=== PATIENT | male | born 1970 | race Caucasian/White ===

== ENCOUNTER 2018-12-07 20:30 | Inpatient (IN) | payer OTHER ==
[~2018-12-07] VITALS: Ht 175.3 cm; Wt 125.6 kg
[2018-12-07 20:35] VITALS: Ht 175.3 cm; Wt 125.6 kg
--- NOTE | 2018-12-07 20:35 | NUR ---
PT BIB AMBULANCE FOR "VOMITING BRIGHT RED BLOOD" X 1 HOUR. PER MEDIC "HE SAID HE WOKE UP ABOUT AN HOUR AGO AND STARTED TO FEEL FUNNY. HE WENT TO THE NURSE THERE AND HE STARTED VOMITING BRIGHT RED BLOOD. WHEN WE GOT ON SCENE HE WAS STILL VOMITING BRIGHT RED BLOOD." PT DENIES ANY PAIN OR BLOOD IN STOOL. PT IS AWAKE, ALERT, AND ORIENTED, BREATHING EVEN AND UNLABORED. PT IN NAD. BREATHING EVEN AND UNLABORED. CM AND [address] MSE IN PLACE. WILL CONTINUE TO MONITOR.
--- NOTE | 2018-12-07 20:54 | NUR ---
EKG IN PROGRESS AT BEDSIDE.
--- NOTE | 2018-12-07 20:59 | NUR ---
LAB AT BEDSIDE.
[2018-12-07 21:14] LABS: BASOPHIL % 0.8 % (0-2)
--- NOTE | 2018-12-07 21:14 | NUR ---
PT VOMITING APPR0X [address] VALENTINE MADE AWARE. AWAITING ORDERS AT THIS TIME.
[2018-12-07 21:15] LABS: PLATELET COUNT 118 x10^3mcL (130-400); RED CELL DISTRIBUTION WIDTH 18.3 % (11.5-14.5)
[2018-12-07 21:26] LABS: ALBUMIN 2.2 g/dL (3.4-5.0); ALKALINE PHOSPHATASE 160 U/L (46-116); ALT/SGPT 36 U/L (16-63); AST/SGOT 39 U/L (15-37); BILIRUBIN TOTAL 1.7 mg/dL (0.20-1.00); CALCIUM 8.8 mg/dL (8.5-10.1); CHLORIDE SERUM 111 mmol/L (98-107); CREATININE SERUM 0.8 mg/dL (0.7-1.3); GFR1 > 60 mL/min; GLUCOSE SERUM 136 mg/dL (74-106); POTASSIUM SERUM 5.5 mmol/L (3.5-5.1); SODIUM SERUM 140 mmol/L (136-145)
--- NOTE | 2018-12-07 21:41 | NUR ---
ATTEMPTED TO START NG TUBE ON PT WITH NOMI IRBY AT BEDSIDE. UPON ADVANCING NGT PT BEGAN GAGGING AND STATED "I CANT DO THIS". PT THEN PULLED NGT OUT AND STATED "NO I CANT DO THAT AWAKE, I TRIED BUT I CANT DO IT". DR VALENTINE MADE AWARE. WILL CONTINUE TO MONITOR.
--- NOTE | 2018-12-07 21:44 | NUR ---
NOTE AT 2140 COMPLETED BY ME, NOT DON IRBY.
[2018-12-07] MEDS ORDERED: XIFAXAN550 M1 PO ×2 (21:59→22:10)
[2018-12-07] MEDS ORDERED: TOPIRAMATE100 M1 PO (22:00)
[2018-12-07] MEDS ORDERED: PROPRANOLOL HCL10 MG PO (22:01)
[2018-12-07] MEDS ORDERED: SPIRONOLACTONE100 MG PO (22:03)
[2018-12-07] MEDS ORDERED: LAC15L PO (22:04)
[2018-12-07] MEDS ORDERED: PROPRANOLOL HCL20 MG PO (22:06)
[2018-12-07] MEDS ORDERED: KEPPRA500 MG PO (22:07)
[2018-12-07] MEDS ORDERED: CLINDAMYCIN HC300 MG PO (22:09)
[2018-12-07] MEDS ORDERED: LASIX40 MG PO (22:09)
--- NOTE | 2018-12-07 22:10 | NUR ---
IV FLUIDS RUNNING AT ORDERED RATE. CM AND [address] PT DROWSY BUT EASILY AROUSABLE. BREATHING EVEN AND UNLABORED. WILL CONTINUE TO MONITOR.
[2018-12-07] MEDS ORDERED: LACTULOSE10 GM/152 PO (22:12)
--- NOTE | 2018-12-07 22:14 | NUR ---
CALLED REPORT TO LEON IRBY.
--- NOTE | 2018-12-07 22:22 | NUR ---
PT TRANSFERED TO TELE AT THIS TIME IN NAD. BREATHING EVEN AND UNLABORED. PT DROWSY BUT EASILY AROUSABLE. PT ABLE TO ANSWER QUESTIONS APPROPRIATELY AND IS CALM AND COOPERATIVE. PT ACCOMPANIED BY EMT BENITA AND MAHAMED MOSHER. IV FLUIDS ENDORSED TO LEON IRBY. PT TRANSFERED VIA RSOMERSET.
[2018-12-07 22:40] VITALS: BP 108/60
--- NOTE | 2018-12-07 22:48 | NUR ---
RECEIVED PT FROM ER VIA SINDI ACCOMPANIED WITH NURSE AND EMT, PT SEEN, DROWSY BUT EASILY AROUSABLE, ORIENTED X 4 WITH CLEAR SPEECH WHILE AWAKE, SZ PRECAUTION IN PLACE, BREATHING EVEN AND UNLABORED, LUNG SOUNDS DIMINISHED, ON O2 2L VIA NC WITH NO RESP DISTRESS NOTED, ON TELE#10 NSR, DENIES CHEST PAIN, IV INFUSING WITH SANDOSTATIN @ 50 MCG/HR, NO N&V WITH BLOODY EMESIS AT THIS TIME, ABD DISTENDED WITH ACTIVE BS, PT STATED THAT LAST BM WAS EARIER IN ED WITH SOME BLOODY STOOL NOTED, DENIES ANY PROBLEM WITH VOIDING, PRIMARY NURSE LEON AT BEDSIDE, GUARDS AT BEDSIDE, NO DISTRESS NOTED, WILL KEEP TO MONITOR.
[2018-12-08] VITALS (14 sets, daily range): BP systolic 87–121; BP diastolic 34–90
--- NOTE | 2018-12-08 05:32 | NUR ---
PT SLEEPING SOUNDLY AT THIS TIME,NO BLEEDING NOTICE AT THIS TIME,KEPT CLEAN AND DRY TO TOUCH AND WILL CONTINUE TO MONITOR.
--- NOTE | 2018-12-08 05:33 | NUR ---
PT IV SITE TO THE RT AC INFILTRATED AND TRY TO START A NEW HL PATIENT NON COMPLAINT AND REFUSING TO HAVE THE HL STARTED,PT WAS EXPALIN TO THE IMPORTANCE OF HAVING THE HL,BECAUSE HE IS RECIEVING SANDOSTATIN DRIP,BUT PATIENT STILL REFUSE TO HAVE THE IV STARTED AT THIS TIME,PT ALSO REFUSED TO HAVE AM LABS DRAW,CALL LIGHT EASY REACHED AND WILL CONTINUE TO MONITOR.
--- NOTE | 2018-12-08 05:58 | NUR ---
CALLED TO DR SINHA MADE AWARE PATIENT REFUSING TO HAVE HL STARTED AT THIS TIME,WILL CONTINUE TO MONITOR.
--- NOTE | 2018-12-08 06:16 | NUR ---
PT SLEEPING AT THIS TIME,MADE THE CHARGE NURSE AWARE OF PATIENT REFUSING TO HAVE THE HL STARTED AT THIS TIME,WILL CONTINUE TO MONITOR.
--- NOTE | 2018-12-08 07:00 | NUR ---
DR SINHA INFORMED THAT IV SITE TO RT AC GOT INFILTRATED AND PATIENT WAS RECEIVING SANDOSTATIN DRIP ON THAT SITE. ASSIGNED NURSE ATTEMPTED TO INSERT BUT UNSUCCESSFUL AND I ALSO TRIED 1X AND WAS UNSUCCESSFUL.ALSO PATIENT REFUSED LAB DRAW THIS AM.
--- NOTE | 2018-12-08 07:18 | NUR ---
NIGHT CHARGE NURSE TRY TO START THE IV ON THE PATIENT BUT NOT ABLE WAS ENDORSED TO THE AM NURSE TO CONTINUE AT THIS TIME.NO VOMITING BLOOD AT THIS MAXX,WILL CONTINUE TO MONITOR.
--- NOTE | 2018-12-08 07:20 | NUR ---
PT IS AAOX4. RESP EVEN AND UNLABORED. LUNG SOUNDS DIMINISHED BILATERALLY. ON N/C AT 2LPM. NO COUGH. TELE [address] READING NSR. ABDOMEN SOFT, DISTENDED. BOWEL SOUNDS HYPOACTIVE WITH C/O N/V. PERIPHERAL PULSES PALPABLE. NO EDEMA NOTED. SKIN CDI. PT HAS REFUSED IV ACCESS THROUGH OUT THE NIGHT. ASKED PT IF WE COULD ATTEMPT IV ACCESS THIS MORNING, PT STATED, "NO, NOT KNOW." PT DENIES PAIN AT THIS TIME. CALL LIGHT IN PLACE. 2 GUARDS AT BEDSIDE ON ONE TO ONE SUPERVISION. BED IN LOWEST POSITION.
--- NOTE | 2018-12-08 08:30 | NUR ---
LET PT KNOW HE NEEDS IV MEDS. ASKED PT IF WE COULD ATTEMPT AN IV ACCESS. PT STATED, "OKAY". WILL ATTEMPT IV ACCESS.
--- NOTE | 2018-12-08 08:45 | NUR ---
SECURITY GUARDS CALLED TO REPORT PT HAD FALLEN. ENTERED ROOM AND PT ON FLOOR IN PRONE POSITION. VS: 97.5, 84, 20, 120/90, 96% ON R/A. BS-132. PT RESPONSIVE. ASSISTED BACK BED. PT ROLLED BACK ON BED WITH TOWARDS BACK OF HEAD, PALE AND DIAPHORETIC. TAPPED ON PT, PT HAD SLOW VERBAL RESPONSE. APPLIED NON REBREATHER AND CALLED RAPID REPONSE. 0856: RAPID RESPONSED OCCURED: PT HAS NO IV ACCESS AND IS REFUSING ACCESS AT THIS TIME. VS: 75/50 (60), 14, 92% ON NONREBREATHER. RISK AND BENEFITS OF REFUSING IV CATH EXPLAINED. PT STILL REFUSING ACCESS. 0900: VS: B/P 75/50 (60) RR 16, HR 88 100% ON NONREBREATHER AT 15LPM. EKG STARTED. NURSE ATTEMPTING IV ACCESS, NOT ABLE TO GET ACCESS. PT REFUSED IO ACCESS. PT REFUSED INTERNAL JUGULAR ACCESS AT THIS TIME. 0912: VS: B/P 68/44 (55), HR 81, RR 16, 100% ON NONREBREATHER. PT HAS GIVEN PERMISSION FOR IV ACCESS. RIJ 20G IV CATH STARTED, COVERED WITH CDI DRESSING. SANDOSTATIN STARTED AT 50MCG/HOUR. PT STABILIZED AND TRANSFERRED TO ICU.
--- NOTE | 2018-12-08 09:25 | NUR ---
PATIENT ARRIVED AT THIS TIME FROM [facility] STATUS POST RAPID RESPONSE. PATIENT WAS BROUGHT DOWN BY 3 NURSES, AND ONE CIM OFFICER. PATIENT BROUGHT DOWN VIA BED. PATIENT IS CURENTLY RESTLESS AND CLAIMS THAT THEY ARE "NOT FEELING GOOD". PATIENT VITALS: 140/122 MAP: 126, RR: 23, HR: 91, TEMP: 97.9, HT: 5'9, WT: 119 KG, 02: 96%. PATIENT HAS IV ACCESS NOTED TO REJ. PATIENT HAS SCAR NOTED TO RLE. ANKLE CUFFS NOTED TO BLE. PATIENT STATES NO PAIN AT THIS TIME. [facility] OFFICERS AT BEDSIDE. WILL CONTINUE TO MONITOR.
--- NOTE | 2018-12-08 09:30 | NUR ---
PT WAS TRANSFERRED TO ICU, REPORT GIVEN TO NGUYEN.
[2018-12-08 09:36] LABS: BASOPHIL % 0.2 % (0-2)
[2018-12-08 09:41] LABS: PLATELET COUNT 112 x10^3mcL (130-400); RED CELL DISTRIBUTION WIDTH 17.9 % (11.5-14.5)
[2018-12-08 09:46] LABS: CALCIUM 7.7 mg/dL (8.5-10.1); CARBON DIOXIDE 21.9 mmol/L (21-32); CHLORIDE SERUM 111 mmol/L (98-107); GFR1 > 60 mL/min; GLUCOSE SERUM 163 mg/dL (74-106); POTASSIUM SERUM 5.1 mmol/L (3.5-5.1); SODIUM SERUM 140 mmol/L (136-145)
--- NOTE | 2018-12-08 09:47 | NUR ---
DR. SINHA MADE AWARE PT HAS TRANSFERRED TO ICU DUE TO HYPOTENSIVE EPISODE.
--- NOTE | 2018-12-08 10:14 | NUR ---
DR. SINHA CALLED AND MADE AWARE NIBP 65/41, MAP 49. PATIENT IS AWAKE, BUT FEELS UNEASY AND MOVING AROUND ALOT IN BED. PATIENT IS A HARD IV STICK, BUT WAS ABLE TO GET A REJ IV UPSTAIRS ON TELE. DR. SINHA MADE AWARE THAT IS THE ONLY IV ACCESS AT THIS TIME. DR. SINHA WOULD LIKE TO ASK IF THE RESIDENTS CAN PUT A CENTRAL LINE IN OR CAN WAIT FOR DR. RIVAS TO COME. DR. SINHA GAVE ORDERS TO BOLUS 500 ML OF NS FOR THE HYPOTENSION AND TO CONSULT DR. RIVAS. WILL FOLLOW AND MAHAMED MARTEL MADE AWARE.
--- NOTE | 2018-12-08 10:35 | NUR ---
INTUBATION STARTED AT THIS TIME. DR FLORES, ER DR AT BEDSIDE. RT AT BEDSIDE. MEDS GIVEN: 150 MG OF KETAMINE, KETAMINE 50 MG AT 1039, 100 MG OF SUCCS AT 1040. 1041, INTUBATION COMPLETED AT 1041, ETT: 8.0 AT 24 TEETH. PATIENT STABLE WITH NO SIGNS OF RESPIRATORY DISTRESS, WILL CONTINUE TO MONITOR.
--- NOTE | 2018-12-08 10:45 | NUR ---
100 MCG OF FENTANYL GIVEN POST INTUBATION FOR CENTRAL LINE.
--- NOTE | 2018-12-08 10:55 | NUR ---
1 UNIT OF PRBCS STARTED AT THIS TIME. VITALS: TEMP:98.0, RR: 14, HR: 86, B/P: 92/24 MAP:47, O2: 96%. PATIENT STABLE, NO PROBLEMS NOTED, WILL CONTINUE TO MONITOR.
--- NOTE | 2018-12-08 10:58 | NUR ---
DR FLORES, ER DR AT BEDSIDE, STARTING CENTRAL LINE AT THIS TIME. WILL CONTINUE TO MONITOR.
--- NOTE | 2018-12-08 11:40 | NUR ---
1ST UNIT OF PRBCS COMPLETED AT THIS TIME. VITALS: 98.0 TEMP, HR: 80, B/P: 116/36, RR:14 AND 100% O2. WILL CONTINUE TO MONITOR.
--- NOTE | 2018-12-08 11:45 | NUR ---
VT LOWERED TO 500 AND RR: INCREASED TO [address] RIVAS
--- NOTE | 2018-12-08 11:59 | NUR ---
SANDOSTATIN INCREASED TO 100 MG AT THIS TIME, PER DR IRWIN. WILL CONTINUE TO MONITOR.
--- NOTE | 2018-12-08 12:19 | NUR ---
EGD AT THIS TIME, WITH DR IRWIN AND [address] IRWIN PATIENT HAS BLOOD COMING FROM THE FUNDUS, AND PATIENT NEEDS TO BE TRANSFERRED AT THIS TIME. DR. IRWIN UNABLE TO STOP THE BLEED. WILL CARRY OUT TRANSFER ORDERS AT THIS TIME.
--- NOTE | 2018-12-08 13:28 | NUR ---
TITRATED FIO2:80% FIO2 AND INCREASED PF TO 80.
--- NOTE | 2018-12-08 13:50 | NUR ---
SPOKE WITH DR. SINHA AT THIS TIME TO INFORM THAT PATIENTS LACTIC ACID IS TRENDING UP, AND IS CURRENTLY 3.0. PER DR. SINHA, CONTINUE WITH PATIENTS ANTIBIOTIC, ROCEPHIN. NO FURTHER ORDERS AT THIS TIME.
--- NOTE | 2018-12-08 13:50 | NUR ---
DR. SINHA NOTIFIED OF LACTIC ACID INCREASING TO 3.[address] SINHA, CONTINUE WITH PATIENTS ANTIBIOTOC, ROCEPHIN. NO FURTHER ORDERS AT THIS TIME.
--- NOTE | 2018-12-08 13:53 | NUR ---
OGT PLACED AT THIS TIME. PATIENT STABLE, NO SIGNS OF DISTRESS. WILL CONTINUE TO MONITOR, AND XR WILL BE ORDERED AT THIS TIME.
--- NOTE | 2018-12-08 14:14 | NUR ---
SPOKE TO MARIA R FROM [facility]. PACKET FAXED TO AND RECIEVED PER MARIA R. AT THIS TIME THERE IS NO ICU BED BUT POSSIBLY A BED TONIGHT. MARIA R TO CALL WITH ANY UPDATES REGARDING ACCEPTING THE PATIENT AND BED AVAILABILITY.
--- NOTE | 2018-12-08 14:22 | NUR ---
MARIA R FROM [facility] CALLED AND THE DOCTOR IS DECLINING TO ACCEPT THIS PATIENT AT THIS TIME. MARIA R WILL ATTEMPT AGAIN TOMORROW AND KEEP US UPDATED.
--- NOTE | 2018-12-08 14:45 | NUR ---
2 UNIT OF PRBCS STARTED AT THIS TIME. WILL CONTINUE TO MONITOR.
--- NOTE | 2018-12-08 15:15 | NUR ---
JARAMILLO INSERTED AT THIS TIME, USING STERILE TECHNIQUE. WILL CONTINUE TO MONITOR.
--- NOTE | 2018-12-08 16:53 | NUR ---
FFP STARTED AT THIS TIME. WILL CONTINUE TO MONITOR.
--- NOTE | 2018-12-08 16:57 | NUR ---
2 UNIT OF PRBCS COMPLETED. PATIENT STABLE, WILL CONTINUE TO MONITOR. VITALS: 97.0 TEMP, 80 HR, 90/47 B/P, 12 RR AND 100% O2.
--- NOTE | 2018-12-08 17:45 | NUR ---
FULL LINEN CHANGE AND BED BATH GIVEN, JARAMILLO CARE PROVIDED.
--- NOTE | 2018-12-08 17:53 | NUR ---
FFP COMPLETED AT THIS TIME. VITALS: TEMP: 97.0, B/P: 91/47, HR: 84, RR: 13, O2: 99%. WILL CONTINUE TO MONITOR.
--- NOTE | 2018-12-08 18:59 | NUR ---
REPORT GIVEN TO MAHAMED CHRISTIAN, ALL THIS TIME. ALL QUESTIONS ANSWERED.
--- NOTE | 2018-12-08 19:15 | NUR ---
RECEIVED PT FROM DELONTE IRBY. SEE NURSE ASSESSMENT FOR MORE DETAILS. PT INTUBATED TO VENT, INTACT AND SEDATED. PT ON FULL ORACLE DATABASE CONSULTANT AND CONTINUOUS PULSE OXIMETRY. BED AT LOWEST SETTING, CALL LIGHT WITHIN REACH, HOB ELEVATED 30 DEGREES. CIM GUARDS AT BEDSIDE PER PROTOCOL WITH RLE HANDCUFF. BUE SOFT WRIST RESTRAINTS INTACT TO PT FOR PT SAFETY. WILL CONT TO MONITOR.
--- NOTE | 2018-12-08 19:25 | NUR ---
NIBP 93/43 (60), DR. SINHA MADE AWARE VIA TELEPHONE. PER DR. SINHA NS 500 CC BOLUS INITIATED AT THIS TIME.
--- NOTE | 2018-12-08 19:30 | NUR ---
FENTANYL TITRATED TO 0.25 MCG/KG/HR. RSS=5.
--- NOTE | 2018-12-08 20:25 | NUR ---
INFORMED DR. SINHA OF PTS NIBP OF 84/39 (56) POST 500 CC BOLUS AND H/H OF 7.[address] SINHA ORDER LEVOPHED IV TO KEEP SYSTOLIC >90, TRANSFUSE 2 UNITS OF PRBC TOTAL AND ORDER 20 MG IVP LASIX AFTER 2 UNITS TRANSFUSED, AND ORDER AM LABS OF BMP/CBC WITH MAG AND PHOSPHORUS. WILL CONT TO MONITOR.
--- NOTE | 2018-12-08 20:40 | NUR ---
1 PRBC UNIT INITIATED AT THIS TIME PER MD ORDER. PRE VITALS 97.8 TEMP, PULSE 88, NIBP 88/39, RESP 16, O2 100%. WILL MONITOR PT FOR S/S OF ADVERSE TRANSFUSION REACTION.
--- NOTE | 2018-12-08 20:55 | NUR ---
15 MIN POST VITALS BLOOD TRANSFUSION. TEMP 98.1, PULSE 88, NIBP 86/39, RESP 18, O2 100%. PT SHOWS NO S/S OF BLOOD TRANFUSION REACTION. TITRATED BLOOD TRANSFUSION PER HOSPITAL PROTOCOL. WILL MONITOR.
--- NOTE | 2018-12-08 21:11 | NUR ---
NIBP 89/41 (59). LEVOPHED INITIATED @ 2 MCG/MIN TO KEEP SYSTOLIC ABOVE [address] SINHA ORDER.
--- NOTE | 2018-12-08 22:15 | NUR ---
LEVOPHED TITRATED TO 4 MCG/MIN. NIBP 85/35 (52) TO KEEP SYSTOLIC ABOVE [address] ERNESTINE ORTIZ.
--- NOTE | 2018-12-08 22:45 | NUR ---
LEVOPHED TITRATED TO 6 MCG/MIN. NIBP 89/36 (61).
--- NOTE | 2018-12-08 23:15 | NUR ---
BLOOD TRANSFUSION FINISHED AT THIS TIME. SEE BLOOD TRANFUSION SHEET FOR DETAILS.
--- NOTE | 2018-12-08 23:35 | NUR ---
LEVOPHED TITRATED TO 8 MCG/MIN. NIBP 89/41. TO KEEP SYSYTOLIC ABOVE [address] SINHA.
--- NOTE | 2018-12-08 23:35 | NUR ---
1 PRBC INITIATED AT THIS TIME. PRE VITALS, TEMP 97.9, PULSE 93, NIBP 89/41, RESP 16, O2 100%. WILL MONITOR FOR ADVERSE BLOOD TRANSFUSION REACTION.
--- NOTE | 2018-12-08 23:50 | NUR ---
15 MIN POST VITALS BLOOD TRANSFUSION. TEMP 98.2, PULSE 92, NIBP 95/42, RESP 20, O2 100%. PT SHOWS NO S/S OF BLOOD TRANFUSION REACTION. TITRATED BLOOD TRANSFUSION PER HOSPITAL PROTOCOL. WILL MONITOR.
[2018-12-09] VITALS (18 sets, daily range): BP systolic 81–116; BP diastolic 40–69
--- NOTE | 2018-12-09 00:45 | NUR ---
LEVOPHED TITRATED TO 6 MCG/MIN. NIBP 94/46. KEEP SYSTOLIC ABOVE [address] SINHA.
--- NOTE | 2018-12-09 01:15 | NUR ---
LEVOPHED TITRATED TO 4 MCG/MIN. NIBP 98/47. KEEP SYSTOLIC ABOVE [address] SINHA.
--- NOTE | 2018-12-09 01:30 | NUR ---
FENTANYL TITRATED TO 1 MCG/KG/HR. RSS=1 AT THIS TIME, PT AWAKE MOVING IN BED AND REACHING FOR ETT. EDUCATED PT ON INTUBATION STATUS AND POC.
--- NOTE | 2018-12-09 01:30 | NUR ---
LEVOPHED TITRATED TO 2 MCG/MIN. NIBP 98/58. KEEP SYSTOLIC ABOVE [address] SINHA.
--- NOTE | 2018-12-09 01:35 | NUR ---
VERSED TITRATED TO 1 MG/HR. RSS=1.
--- NOTE | 2018-12-09 01:45 | NUR ---
LEVOPHED TITRATED TO 4 MCG/MIN. NIBP 82/39. KEEP SYSTOLIC ABOVE [address] SINHA.
--- NOTE | 2018-12-09 01:45 | NUR ---
LEVOPHED TITRATED TO 4 MCG/MIN. NIBP 89/39. KEEP SYSTOLIC ABOVE [address] SINHA.
--- NOTE | 2018-12-09 02:00 | NUR ---
BLOOD TRANSFUSION FINISHED AT THIS TIME. VITALS: TEMP 98.5, PULSE 92, NIBP 92/46, RESP 20, O2 100%. NO S/S OF ADVERSE TRANSFUSION REACTION. WILL CALL LAB TO DRAW H/H AND ORDER LASIX IVP [address] ISNHA ORDER.
--- NOTE | 2018-12-09 03:15 | NUR ---
LEVOPHED TITRATED TO 2 MCG/MIN. NIBP 99/52. KEEP SYSTOLIC ABOVE [address] SINHA.
--- NOTE | 2018-12-09 05:30 | NUR ---
FENTANYL TITRATED TO 0.25 MCG/KG/HR. RSS=5.
[2018-12-09 05:33] LABS: BASOPHIL % 0.1 % (0-2)
[2018-12-09 05:37] LABS: PLATELET COUNT 61 x10^3mcL (130-400)
[2018-12-09 05:39] LABS: RED CELL DISTRIBUTION WIDTH 21.1 % (11.5-14.5)
[2018-12-09 05:47] LABS: acanthocyte (spur cell) 1+; rbc morphology (normal/abnorm) ABNORMAL (NORMAL)
[2018-12-09 05:52] LABS: CALCIUM 6.9 mg/dL (8.5-10.1); CARBON DIOXIDE 21.7 mmol/L (21-32); CREATININE SERUM 1.5 mg/dL (0.7-1.3); PHOSPHOROUS 4.3 mg/dL (2.5-4.9); POTASSIUM SERUM 5.3 mmol/L (3.5-5.1)
--- NOTE | 2018-12-09 06:00 | NUR ---
VERSED GTT TITRATED TO 0.5 MG/HR.
--- NOTE | 2018-12-09 06:00 | NUR ---
VERSED GTT TITRATED TO 0.5 MG/HR. RSS=5.
--- NOTE | 2018-12-09 06:11 | NUR ---
BP 84/41 MAP 52, LEVOPHED TITRATED TO 3 MCG/MIN.
--- NOTE | 2018-12-09 06:28 | NUR ---
LEVOPHED TITRATED TO 4 MCG/MIN. NIBP 88/41 (51).
--- NOTE | 2018-12-09 06:45 | NUR ---
LEVOPHED TITRATED TO 5 MCG/MIN. NIBP 88/43 (57).
--- NOTE | 2018-12-09 07:01 | NUR ---
GAVE REPORT TO MAHAMED LEONARDO AND SHREE IRBY. UPDATES GIVEN AND QUESTIONS ANSWERED. ENDORSED CARE.
--- NOTE | 2018-12-09 08:00 | NUR ---
20ML AIR BOLUS TO OGT TO AUSCULTATE PLACEMENT. AIR BOLUS AUSCULTATED OVER STOMACH.
--- NOTE | 2018-12-09 09:00 | NUR ---
DR. IRWIN AT BEDSIDE TO ASSESS PATIENT. UPDATES PROVIDED AND POC DISCUSSED. PLAN IS TO FLUSH STOMACH WITH 500 ML OF ICE WATER AND TO DO ANOTHER EGD TODAY. WILL FOLLOW AND CONTINUE TO MONITOR.
--- NOTE | 2018-12-09 10:05 | NUR ---
FLUSHED THE OGT WITH APPROX 200 ML OF ICE STERILE WATER AND LET IT SIT FOR 10 MINUTES. CONNECTED OGT TO SUCTION AND WAS UNABLE TO SUCTION THE WATER BACK OUT OF THE STOMACH. ATTEMPTED TO USE THE SYRINGE, BUT WAS GETTINGS RESISTENCE. DR. IRWIN CALLED AND MADE AWARE AND ORDERED TO STOP FLUSHING THE STOMACH AT THIS TIME. GI TEAM AT BEDSIDE, SETTING UP FOR EGD PROCEDURE, DR. IRWIN MADE AWARE. WILL CONTINUE TO MONITOR.
--- NOTE | 2018-12-09 10:28 | NUR ---
EGD DONE BY DR. IRWIN AND GI TEAM. PATIENT WAS SEDATED ON VERSED AND FENTANYL DRIP. ORDERS TO BOLUS PATIENT A TOTAL OF 4 MG VERSED IV AND 100 MCG FENTANYL IV. 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 PATIENT TOLERATES PROCEDURE WELL. PLAN IS STILL TO HAVE PATIENT TRANSFER TO HIGHER LEVEL OF CARE FOR FURTHER TREATMENT WITH POSSIBLE TIPPS PROCEDURE PER DR. IRWIN RECOMMENDATIONS. WILL CONTINUE TO MONITOR.
--- NOTE | 2018-12-09 12:00 | NUR ---
DR. RIVAS AT BEDSIDE TO ASSESS PATIENT. UPDATES PROVIDED AND POC DISCUSSED. DR. RIVAS SWITCHED PATIENT'S VENT SETTINGS FROM AC MODE TO PC MODE WITH PS 18, RR 14, PEEP 5 AND FI02 28%. ADRIANNE, RT AT BEDSIDE AND MADE AWARE OF CHANGES. WILL CONTINUE TO MONITOR.
--- NOTE | 2018-12-09 12:46 | NUR ---
RIGHT FEMORAL ARTERIAL LINE PLACED BY DR. RIVAS. PT TOLERATED WELL, WILL CONTINUE TO MONITOR AND ASSESS INSERTION SITE. FIRST ARTERIAL LINE BP READING 97/56 (69), GOOD WAVEFORM ON MONITOR NOTED.
--- NOTE | 2018-12-09 13:00 | NUR ---
ARTERIAL BP 102/57, MAP 71. LEVOPHED DRIP TITRATED DOWN TO 4 MCG/MIN. WILL CONTINUE TO MONITOR.
--- NOTE | 2018-12-09 13:46 | NUR ---
ABG RESULTS SHOW P02 WAS A LITTLE LOW 68.5. ADRIANNE, RT NOTIFIED DR. RIVAS AND GOT ORDER TO INCREASE THE FI02 UP TO 35% WHICH WAS DONE AT THIS TIME. NO SIGNS OF RESP DISTRESS. WILL CONTINUE TO MONITOR.
--- NOTE | 2018-12-09 13:46 | NUR ---
INCREASED FIO2 TO 35% PER ABG RESULT AND
--- NOTE | 2018-12-09 14:35 | NUR ---
SBP 107, LEVOPHED TITRATED DOWN TO 3 MCG/MIN FROM 4 MCG/MIN. WILL CONTINUE TO MONITOR.
--- NOTE | 2018-12-09 15:09 | NUR ---
NIBP 118/63, MAP 81. LEVOPHED DRIP TITRATED DOWN TO 1 MCG/MIN. WILL CONTINUE TO MONITOR.
--- NOTE | 2018-12-09 15:48 | NUR ---
ARTERIAL BP 113/63, MAP 78. LEVOPHED DRIP TITRATED OFF AT THIS TIME. WILL CONTINUE TO MONITOR.
--- NOTE | 2018-12-09 16:01 | NUR ---
SANDOSTATIN DRIP TITRATED TO 37.5 ML/HR AT THIS TIME PER DR. IRWIN ORDERS. PRIMARY RN AWARE.
--- NOTE | 2018-12-09 16:16 | NUR ---
CALLED MARIA R AT [facility] AND PROVIDED HER UPDATES. PER MARIA R SHE HAS NO CURRENT ICU BEDS AND BELIEVES NO DOCTOR WILL ACCEPT THIS TIME PT JUST GOT OFF LEVOPHED AND THEY TYPICALLY DO NOT TRANSFER DURING THE NIGHT. PER MARIA R WE CAN CONTACT THE [facility] C[facility] TOMORROW AND FOLLOW UP. PRIMARY RN AWARE.
--- NOTE | 2018-12-09 17:21 | NUR ---
POSSIBLE SEIZURE ACTIVITY. 2 EPISODES OF ~7 SECONDS OF TONIC-CLONIC SHAKING TO ARMS AND LEGS, EYES CLOSED TIGHTLY AND TWITCHING; EYES TURNED UPWARD TOWARD HEAD OF BED WHEN OPENED BY BEDSIDE RN'S TO ASSESS. RN CALLED DR. SINHA WITH UPDATE, AND NOTIFIED HIM THAT PT'S FACILITY MEDS INCLUDE 250 MG KEPPRA PO BID. RN ASKED DR. SINHA FOR IV KEPPRA ORDER. ORDER RECEIVED, WILL CARRY OUT.
--- NOTE | 2018-12-09 17:35 | NUR ---
PATIENT HAD APPROX 700 ML OF DARK CLIFFORD COLORED BLOOD NOTED RECTALLY. VS STABLE AT THIS TIME. ARTERIAL BP 107/60, MAP 76 WITH HR 103. LEVOPHED DRIP REMAINS OFF. ONE UNIT OF FFP DONE INFUSING, WILL START ONE OF TWO UNITS OF PRBC'S TO BE INFUSED TODAY SHORTLY. PATIENT CLEANED UP, JARAMILLO CARE PROVIDED, COMPLETE LINEN CHANGED AND NEW GOWN APPLIED. PATIENT TOLERATED WELL AND REMAINS SEDATED ON FENTANYL AND VERSED DRIP. SANDOSTATIN INFUSING AT 37.5 ML/HR PER DR. IRWIN ORDER. PATIENT REPOSITIONED TO RIGHT SIDE WITH HOB ELEVATED AND PILLOWS IN PLACE TO ALLEVIATE PRESSURE POINTS. BED TO LOWEST POSITION, SIDE RAILS UP X3, CALL LIGHT WITHIN REACH. TWO CIM GUARDS REMAIN AT BEDSIDE. WILL CONTINUE TO MONITOR.
--- NOTE | 2018-12-09 18:54 | NUR ---
1 UNIT OF PACKED RED BLOOD CELLS VERIFIED AT BEDSIDE WITH MALISSA IRBY. PRE-ADMINISTRATION VITAL SIGNS: T 97.7 HR 103 BP 110/61 O2 100 RR 11. TUBE FEEDING INITIATED; JEVITY 1.2 KCAL/ML RUNNING @ 20 ML/HR WITH FREE WATER FLUSH 30 ML Q6HRS.
--- NOTE | 2018-12-09 19:05 | NUR ---
RECEIVED REPORT FROM SHREE IRBY AND MALISSA IRBY. ASSUMING ALL CARE
--- NOTE | 2018-12-09 19:15 | NUR ---
RECEIVED PT LAYING IN BED. PT IS INTUBATED AND SEDATED ON FENTANYL @ 0.5 MCG/KG/HR AND VERSED @ 4 MG/HR. RSS=5. PT RESPONDS TO PAINFUL STIMULI. VERSED TITRATED TO 3 MG/HR. PT DOES NOT FOLLOW COMMANDS. GAG REFLEX PRESENT. PUPILS WITH SLUGGISH RESPONSE TO LIGHT, 3 MM BILAT. SEIZURE PRECATIONS IN PLACE. 8.0 ETT INTACT/SECURED, 24 CM @ LL. LIJ TLC IN PLACE WITH DRESSING CDI, ALL PORTS PATENT. OGT IN PLACE. ORAL CARE PROVIDED PER VAP PROTOCOL. BREATHING IS E/U ON VENT. VENT SETTINGS: PCV/AC MODE, RATE 14, PRESSURE 18, PEEP 5, FIO2 35%. COARSE CRACKLES NOTED TO BUL AND DIMIN TO BLL. SYMMETRICAL CHEST EXPANSION NOTED. S1/S2 HEART SOUNDS AUSCULTATED. CHEST WALL EQUAL AND SYMMETRICAL. NO S/S OF CP NOTED. HR 101, ART BP 107/59 MAP 75. RIGHT FEMORAL ARTERIAL LINE IN PLACE WITH DRESSING CDI, NO S/S OF INFECTION NOTED. CVP=10. WEAK PULSES X4 EXTREMITIES. SKIN IS WARM AND DRY. CAP REFILL < 3 SECS. +2 PITTING EDEMA NOTED TO BLE AND NONPITTING EDEMA NOTED TO BUE. REJ IN PLACE WITH NO S/S OF INFILTRATION NOTED. NS INFUSING @ 70 ML/HR, SANDOSTATIN INFUSING @ 37.5 ML/HR, AND PRBC INFUSING @ 150 ML/HR. SCD IN PLACE. GENERALIZED WEAKNESS. PT ON BEDREST. ISOGEL MATTRESS IN PLACE. PT ON BILAT SOFT WRIST RESTRAINT FOR PT SAFETY, GOOD CIRCULATION NOTED. PT ON JEVITY 1.2 @ 20 ML/HR WITH 30 CC FWF Q6H. GRV=5, REPLACED. TOLERATING WELL. ABD IS SOFT/5DISTENDED/NONTENDER TO PALPATION. BOWEL SOUNDS ACTIVE X4 QUADRANTS. NO BM NOTED. JARAMILLO IS INTACT/SECURED, DRAINING VIA GRAVITY WITH CHARLIE COLORED URINE. SCAR NOTED TO LLE. SKIN IS INTACT. PT ON TURN SCHED Q2H AND PRN. 2 CIM GUARDS AT BEDSIDE. BED IN LOW POSITION. CALL LIGHT IN REACH. WILL CONT TO MONITOR
--- NOTE | 2018-12-09 20:50 | NUR ---
PRBC INFUSIION COMPLETED. POST INFUSION VITALS: TEMP 98.5, HR 106, ART BP 109/62, RR 15, SPO2 100%. NO ADVERSE EFFECT NOTED. WILL CONT TO MONITOR.
--- NOTE | 2018-12-09 21:40 | NUR ---
SENIOR MAINFRAME DEVELOPER AT BEDSIDE FOR CBC BLOOD DRAW
--- NOTE | 2018-12-09 22:19 | NUR ---
SPOKE TO DR. SINHA VIA TELEPHONE. UPDATED ON PT'S STATUS AND MOST RECENT H/H. PER DR. SINHA, HOLD OFF ON INFUSING THE SECOND UNIT OF PRBC. ORDER READ BACK AND IN AGREEMENT.
[2018-12-10] VITALS (14 sets, daily range): BP systolic 104–145; BP diastolic 71–96
--- NOTE | 2018-12-10 00:10 | NUR ---
RSS=5. VERSED TITRATED TO 2 MG/HR. WILL CONT TO MONITOR
--- NOTE | 2018-12-10 02:04 | NUR ---
PT IS INTUBATED AND REMAINS SEDATED ON FENTANYL AND VERSED. BREATHING IS E/U. NO S/S OF ACUTE DISTRESS NOTED. 2 CIM GUARDS AT BEDSIDE. BED IN LOW POSITION. CALL LIGHT IN REACH. WILL CONT TO MONITOR.
--- NOTE | 2018-12-10 03:01 | NUR ---
PT HAD APPROX 300 ML OF DARK BLOODY LIQUID STOOL NOTED RECTALLY. CHUCKS CHANGED, PERICARE PROVIDED. VSS. WILL CONT TO MONITOR
[2018-12-10 03:52] LABS: CALCIUM 7.7 mg/dL (8.5-10.1); CARBON DIOXIDE 22.6 mmol/L (21-32); CHLORIDE SERUM 116 mmol/L (98-107); CREATININE SERUM 1.2 mg/dL (0.7-1.3); GFR1 > 60 mL/min; GLUCOSE SERUM 143 mg/dL (74-106); POTASSIUM SERUM 4.3 mmol/L (3.5-5.1); SODIUM SERUM 148 mmol/L (136-145)
[2018-12-10 04:09] LABS: BASOPHIL % 0.3 % (0-2)
[2018-12-10 04:11] LABS: PLATELET COUNT 61 x10^3mcL (130-400)
[2018-12-10 04:18] LABS: acanthocyte (spur cell) 1+; rbc morphology (normal/abnorm) ABNORMAL (NORMAL)
--- NOTE | 2018-12-10 05:15 | NUR ---
FULL BED BATH PROVIDED. GOWN AND LINENS CHANGED. PERICARE, ORAL, AND JARAMILLO CARE PROVIDED. HEELS OFFLOADED. SCD'S REAPPLIED. PT REMAINS SEDATED ON VERSED @ 2 MG/HR AND FENTANYL @ 0.5 MGK/KG/HR. NS INFUSING @ 70 ML/HR AND SANDOSTATIN INFUSING @ 37.5 ML/HR. 8.0 ETT INTACT/SECURED, 24 CM @ LL. PT REMAINS ON PCV/AC MODE, RATE 14, PEEP 5, FIO2 35%, PRESSURE 18. BILAT SOFT WRIST RESTRAINTS IN PLACE. 2 CIM GUARDS AT BEDSIDE. BED IN LOW POSITION. CALL LIGHT IN REACH. WILL CONT TO MONITOR.
--- NOTE | 2018-12-10 06:55 | NUR ---
GRV=5 ML. JEVITY 1.2 TF ADVANCED TO 30 ML/HR WITH 30 ML FWF Q6H. WILL CONT TO MONITOR
--- NOTE | 2018-12-10 07:10 | NUR ---
REPORT GIVEN TO ERNESTINE IRBY FOR CONTINUITY IF CARE. ALL QUESTIONS/CONCERNS ADDRESSED AT THIS TIME. ENDORSING ALL CARE
--- NOTE | 2018-12-10 07:45 | NUR ---
NOTE FRORM 0715 TO 0745: THE PATIENT REMAINS INTUBATED AND SEDATED WITH FENTANYL AT 0.5MCG/KG/HR AND VERSED AT 2MG/HR. SEDATION IS ON HOLD AT THIS TIME FOR VACATION PER PROTOCOL. PATIENT RESPONSIVE TO PAINFUL STIMULI; COUGH REFLEX PRESENTS. LOUIS PUPILS WITH SLUGGISH REACTION 3MM TO LIGHT. 8.0 ETT IS SECURED TO FACE AND AT 24CM AT LIPLINE. ETT TO VENT VIA PCV/AC MODE: FIO2 35%, RATE 14, PEEP 5 AND PRESSURE SUPPORT 18. OGT IN PLACE AND SECURED TO ETT. OGT PLACEMENT VERIFIED WITH SOME AIR BOLUS. NO RESIDUAL AT THIS TIME. OGT TO TUBE FEEDING WITH JEVITY AT 30ML/HR AND FREE WATER FLUSH AT 30ML EVERY 6H. CVC TO LIJ WITH DRESSING INTACT. CVP 12. PERIPHERAL IV TO REJ WITH DRESSING INTACT. ARTLINE TO RIGHT FEMORAL. IVF NS AT 70ML/HR. SANDOSTATIN AT 37.5ML/HR. TELE # 2 READS SINUS TACHYCARDIA. JARAMILLO CATH TO GRAVITY DRAINING CHARLIE URINE. SOFT WRIST RESTRAINTS TO BOTH WRISTS TO PREVENT PATIENT FROM PULLING AT LINE/TUBE. WILL RELEASE RESTRAINTS FOR ROM Q2HR/PRN. CALL LIGHT WITHIN REACH. SIDE RAILS UP X3 AND PADDED FOR SEIZURE PRECAUTION. THE GUARDS AT BEDSIDE.
--- NOTE | 2018-12-10 09:30 | NUR ---
THE PATIENT'S HEART RATE IS TRENDING UP TO 119; VERSED RESUMED AT 2MG/HR.
--- NOTE | 2018-12-10 09:39 | NUR ---
DR. IRWIN IN TO SEE THE PATIENT; UPDATE WAS PROVIDED TO THE DOCTOR.
--- NOTE | 2018-12-10 09:46 | NUR ---
SANDOSTATIN TITRATED TO 25 ML/HR PER DR IRWIN.
--- NOTE | 2018-12-10 09:47 | NUR ---
CHANGED RATE OF NS INFUSION TO 20 ML/HR PER DR IRWIN'S ORDER.
--- NOTE | 2018-12-10 10:05 | NUR ---
DR. SINHA IN TO SEE THE PATIENT AND WAS UPDATED.
--- NOTE | 2018-12-10 11:28 | NUR ---
THE PATIENT RESPONSIVE TO PAINFUL STIMULI. VERSED TITRATED FROM 2MG/HR DOWN TO 1MG/HR.
--- NOTE | 2018-12-10 11:55 | NUR ---
DR. RIVAS IS AT BEDSIDE EXAMING THE PATIENT. VERSED TITRATED FROM 1MG/HR DOWN TO 0.5MG/HR AND FENTANYL RESUMED AT 0.5MCG/KG/HR. AND TUBE FEEDING RATE INCREASED TO 35ML/HR WITH FREE WATER FLUSH AT 50ML/HR PER DR. RIVAS'S VERBALLY ORDER.
--- NOTE | 2018-12-10 11:58 | NUR ---
INITIATED CPAP /. PT TOLERATING WELL. WILL CONT.TO MONITOR
--- NOTE | 2018-12-10 12:02 | NUR ---
DR. RIVAS CHANGES THE VENT SETTING TO CPAP WITH PEEP 5 AND PSV 10.
--- NOTE | 2018-12-10 12:03 | NUR ---
PLACED PT ON CPAP 03/02. PT TOLERATING WELL. WILL CONT.TO MONITOR
--- NOTE | 2018-12-10 13:30 | NUR ---
ADRIANNE RT IS AT BEDSIDE CHANGING THE VENT SETTING FROM CPAP MODE BACK TO PRESSURE CONTROL: FIO2 35%, RATE 14, PEEP 5 AND PRESSURE SUPPORT 16.
--- NOTE | 2018-12-10 13:46 | NUR ---
CALLED [facility] ([facility]) AND GAVE REPORT TO VERA WILSON, ACCEPTING NURSE. CONCERNS WERE ADDRESSED. THE PATIENT WILL BE TRANSFFERED TO THE FACILITY AT 1500.
--- NOTE | 2018-12-10 15:30 | NUR ---
PATIENT ONLY FROWNED TO PAINFUL STIMULI AND HAD GAG REFLEX UPON SUCTIONING; FENTANYL ON HOLD. VERSED REMAINS AT 0.5MG/HR. PATIENT WAS GIVEN BED BATH AND LINEN/GOWN CHANGED. JARAMILLO, CENTRAL LINE AND ARTLINE CARE PROVIDED TO THE PATIENT. PATIENT IS VENT VIA PRESSURE CONTROL: FIO2 35%, RATE 14, PEEP 5 AND PRESSURE SUPPORT 18.
--- NOTE | 2018-12-10 16:15 | NUR ---
THE [facility] TEAM IS AT BEDSIDE TO REPLEN[employer]ISING ASSOCIATE THE PATIENT. REPORT GIVEN TO ROCKY OCAMPO, ONE OF THE TRAIN BRAKE OPERATOR. THE IS ABOUT 60ML OF VERSED LEFT IN THE BAG, WHICH WILL BE SENT WITH THE PATIENT UPON TRANSFER. ROCKY WITNESSED AND WILL ASK THE ACCEPTING NURSE TO WITNESS WITH HIM AND FAX THE SUBSTANCE CONTROL SHEET BACK TO [facility] WHEN THEY GET TO [facility].
--- NOTE | 2018-12-10 17:00 | NUR ---
THE PATIENT WAS TRANSFERRED TO [facility]; PATIENT REMAINS ON SANDOSTATIN AT 25ML/HR AND VERSED 0.5MG/HR WHILE BEING TRANSFERRED TO [facility]. ALL BELONGINGS SENT WITH THE PATIENT UPON TRANSFER AND PATIENT ACCOMPANIED BY THE OFFICE GUARDS.
== END 2018-12-10 17:00 | disposition short-term general hospital (02) | DRG 299 ==
LOC: ED 20:30 → DU 21:50 → IC 21:50 → DU 22:22 → IC 12-08 09:47 → MU 12-08 10:46 → IC 12-08 11:04
PROVIDERS: Emergency Medicine; Internal Medicine Gastroenterology; ADMIT Internal Medicine
PROC: 5A1945Z Respiratory Ventilation, 24-96 Consecutive Hours (ICD-10-PCS; principal; 2018-12-07)
PROC: 0BH17EZ Insertion of Endotracheal Airway into Trachea, Via Natural or Artificial Opening (ICD-10-PCS; 2018-12-07)
PROC: 02HV33Z Insertion of Infusion Device into Superior Vena Cava, Percutaneous Approach (ICD-10-PCS; 2018-12-07)
PROC: B548ZZA Ultrasonography of Superior Vena Cava, Guidance (ICD-10-PCS; 2018-12-07)
PROC: 0DJ08ZZ Inspection of Upper Intestinal Tract, Via Natural or Artificial Opening Endoscopic (ICD-10-PCS; 2018-12-08)
PROC: 30233K1 Transfusion of Nonautologous Frozen Plasma into Peripheral Vein, Percutaneous Approach (ICD-10-PCS; 2018-12-08)
PROC: 30233N1 Transfusion of Nonautologous Red Blood Cells into Peripheral Vein, Percutaneous Approach (ICD-10-PCS; 2018-12-08)
PROC: 0W3P8ZZ Control Bleeding in Gastrointestinal Tract, Via Natural or Artificial Opening Endoscopic (ICD-10-PCS; 2018-12-09)
PROC: 04HY32Z Insertion of Monitoring Device into Lower Artery, Percutaneous Approach (ICD-10-PCS; 2018-12-09)
DX: I86.4 Gastric varices (principal); J96.01 Acute respiratory failure with hypoxia; R57.1 Hypovolemic shock; K92.2 Gastrointestinal hemorrhage, unspecified; E66.2 Morbid (severe) obesity with alveolar hypoventilation; B18.2 Chronic viral hepatitis C; G40.909 Epilepsy, unspecified, not intractable, without status epilepticus; J02.9 Acute pharyngitis, unspecified; I95.9 Hypotension, unspecified; F41.8 Other specified anxiety disorders; K74.69 Other cirrhosis of liver; D50.0 Iron deficiency anemia secondary to blood loss (chronic); K72.90 Hepatic failure, unspecified without coma; Z68.37 Body mass index [BMI] 37.0-37.9, adult; Z88.6 Allergy status to analgesic agent
CPT/HCPCS: 31500; 36556; 36600; 43235; 82962; A4628; C9113; G0378; J0171; J0330; J0696; J1200; J1610; J1800; J1940; J1953; J2060; J2250; J2310; J2354; J2765; J3010; J3490; J7030; J7040; J7042; J7050; J7620; P9016; P9059; Q0092